=== PATIENT | male | born 2000 | race Caucasian/White ===

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

== ENCOUNTER 2022-01-06 17:51 | Emergency (ER) | payer OTHER ==
[~2022-01-06] VITALS: Ht 185.4 cm; Wt 113.4 kg
[~2022-01-06 17:51] MED LIST changes: +ALBENDAZOLE200 MG PO
[2022-01-06] MEDS ORDERED: ZITHROMAX250 MG PO (21:03)
[2022-01-06] MEDS ORDERED: VENTOLIN 02.5 MG/3 M INH (21:05)
== END 2022-01-06 21:08 | disposition home or self-care (01) ==
LOC: ED 17:51
DX: J18.9 Pneumonia, unspecified organism (principal); Z79.899 Other long term (current) drug therapy

== ENCOUNTER 2022-02-26 05:06 | Emergency (ER) | payer OTHER ==
[~2022-02-26] VITALS: Ht 185.4 cm; Wt 113.4 kg
[~2022-02-26 05:06] MED LIST changes: +VENTOLIN 02.5 MG/3 M INH; +ZITHROMAX250 MG PO
[2022-02-26] MEDS ORDERED: OMNICEF300 MG PO (06:17)
[2022-02-26] MEDS ORDERED: PREDNISONE20 M1 PO (06:17)
== END 2022-02-26 06:56 | disposition home or self-care (01) ==
LOC: ED 05:06
DX: J01.90 Acute sinusitis, unspecified (principal); Z20.822 Contact with and (suspected) exposure to COVID-19; J45.901 Unspecified asthma with (acute) exacerbation; Z79.899 Other long term (current) drug therapy

== ENCOUNTER 2022-05-18 20:36 | Emergency (ER) | payer OTHER ==
[~2022-05-18] VITALS: Ht 185.4 cm; Wt 111.1 kg
[~2022-05-18 20:36] MED LIST changes: +PREDNISONE20 M1 PO
[2022-05-18 22:58] LABS: BASO # 0.1 10*3/uL (0.0-0.1); BASO % 0.7 % (0.0-1.0); EOS # 0.6 10*3/uL (0.0-0.4); EOS % 4.9 % (1.0-4.0); HEMATOCRIT 41.9 % (42.0-52.0); LYMPH # 2.7 10*3/uL (1.3-4.4); MEAN CORPUSCULAR HGB 29.8 pg (27.0-31.0); MEAN CORPUSCULAR HGB CONC 35.1 g/dl (33.0-37.0); MEAN PLATELET VOLUME 11.9 fl (9.6-12.3); MONO % 7.9 % (3.0-9.0); NEUT # 8.4 10*3/uL (2.3-7.9); NEUT % 65.1 % (47.0-73.0); PLATELET COUNT AUTOMATED 264 10*3/uL (130-400); RED BLOOD COUNT 4.93 10*6/uL (4.50-5.90); RED CELL DISTRI WIDTH 12.6 % (0-14.5); WHITE BLOOD COUNT 12.9 10*3/uL (4.8-10.8)
[2022-05-18] MEDS ORDERED: ZITHROMAX500 MG PO (23:03)
[2022-05-18 23:15] LABS: ALKALINE PHOSPHATASE 62 U/L (45-117); BUN 10 mg/dl (7-24); CHLORIDE 109 mmol/L (98-107); CREATININE 0.97 mg/dL (0.70-1.30); POTASSIUM 3.7 mmol/L (3.5-5.1); SGPT/ALT 33 U/L (12-78); SODIUM 140 mmol/L (136-145); TOTAL PROTEIN 6.3 gm/dL (6.4-8.2)
== END 2022-05-18 23:27 | disposition home or self-care (01) ==
LOC: ED 20:36
PROVIDERS: Nurse Practitioner Family
DX: J02.9 Acute pharyngitis, unspecified (principal); Z20.822 Contact with and (suspected) exposure to COVID-19; Z79.899 Other long term (current) drug therapy

== ENCOUNTER 2022-05-20 03:09 | Emergency (ER) | payer OTHER ==
[~2022-05-20] VITALS: Ht 182.8 cm; Wt 116.1 kg
[~2022-05-20 03:09] MED LIST changes: +ZITHROMAX500 MG PO
[2022-05-20] MEDS ORDERED: TAMIFLU 75MG CA75 MG PO (04:06)
== END 2022-05-20 04:15 | disposition home or self-care (01) ==
LOC: ED 03:09
DX: J10.1 Influenza due to other identified influenza virus with other respiratory manifestations (principal); Z20.822 Contact with and (suspected) exposure to COVID-19

== ENCOUNTER 2023-05-31 19:20 | Emergency (ER) | payer OTHER ==
[~2023-05-31] VITALS: Ht 185.4 cm; Wt 108.9 kg
[~2023-05-31 19:20] MED LIST changes: +TAMIFLU 75MG CA75 MG PO
== END 2023-05-31 21:17 | disposition home or self-care (01) ==
LOC: ED 19:20
DX: U07.1 COVID-19 (principal); M54.9 Dorsalgia, unspecified; R51.9 Headache, unspecified; J45.909 Unspecified asthma, uncomplicated; F90.9 Attention-deficit hyperactivity disorder, unspecified type

== ENCOUNTER 2024-06-25 11:11 | Emergency (ER) | payer BC ==
[~2024-06-25] VITALS: Ht 185.4 cm; Wt 106.6 kg
[2024-06-25] MEDS ORDERED: AMOX-CLAV 875-1 EACH PO (12:26)
[2024-06-25] MEDS ORDERED: Amoxicillin/Clavulanate Pota 875 MG TAB PO ONE (12:30)
== END 2024-06-25 12:30 | disposition home or self-care (01) ==
LOC: ED 11:11
DX: H66.93 Otitis media, unspecified, bilateral (principal); Z20.822 Contact with and (suspected) exposure to COVID-19; J02.9 Acute pharyngitis, unspecified; J45.909 Unspecified asthma, uncomplicated; K21.9 Gastro-esophageal reflux disease without esophagitis; F90.9 Attention-deficit hyperactivity disorder, unspecified type

== ENCOUNTER 2024-08-13 12:39 | Emergency (ER) | payer BC ==
[~2024-08-13] VITALS: Ht 185.4 cm; Wt 108.9 kg
[~2024-08-13 12:39] MED LIST changes: +AMOX-CLAV 875-1 EACH PO
== END 2024-08-13 14:18 | disposition home or self-care (01) ==
LOC: ED 12:39
DX: B34.9 Viral infection, unspecified (principal); Z20.822 Contact with and (suspected) exposure to COVID-19; H92.03 Otalgia, bilateral; J45.909 Unspecified asthma, uncomplicated; F90.9 Attention-deficit hyperactivity disorder, unspecified type

== ENCOUNTER 2024-09-13 12:38 | Emergency (ER) | payer BC ==
[~2024-09-13] VITALS: Ht 185.4 cm; Wt 121.8 kg
[2024-09-13] MEDS ORDERED: IBUPROFEN 600 MG TAB PO ONE (12:55)
[2024-09-13] MEDS ORDERED: ACETAMINOPHEN 325 MG TAB PO ONE (12:55)
== END 2024-09-13 15:27 | disposition home or self-care (01) ==
LOC: ED 12:38
DX: B34.9 Viral infection, unspecified (principal); J45.909 Unspecified asthma, uncomplicated; Z20.822 Contact with and (suspected) exposure to COVID-19

== ENCOUNTER 2025-06-01 10:39 | Emergency (ER) | payer BC ==
[~2025-06-01] VITALS: Wt 115.7 kg
[2025-06-01] MEDS ORDERED: KENALOG 0.1%80 GM T (11:22)
== END 2025-06-01 11:36 | disposition home or self-care (01) ==
LOC: ED 10:39
DX: L25.9 Unspecified contact dermatitis, unspecified cause (principal); J45.909 Unspecified asthma, uncomplicated; F90.9 Attention-deficit hyperactivity disorder, unspecified type; K21.9 Gastro-esophageal reflux disease without esophagitis; Z86.16 Personal history of COVID-19; Z87.19 Personal history of other diseases of the digestive system